=== PATIENT | female | born 1955 ===

== ENCOUNTER 2020-04-09 14:31 | Emergency (ER) | payer OTHER ==
[~2020-04-09] VITALS: Ht 157.5 cm; Wt 68.9 kg
[2020-04-09 15:11] VITALS: BP 116/86
--- NOTE | 2020-04-09 15:28 | NUR ---
W/C ASSISTED TO BED 9.
--- NOTE | 2020-04-09 15:35 | NUR ---
PT BIBA FROM HOME C/O LOWER ABDOMINAL PAIN & LEFT HIP RADIATING TO THE LEFT THIGH X 4 DAYS. DENIES DYSURIA OR TRAUMA. DENIES N/V/D; SKIN IS PINK/WARM/DRY; AAOX4 WITH EVEN AND STEADY GAIT; LUNGS CLEAR BL; HR EVEN AND REGULAR; PT DENIES ANY FEVER, CP, SOB, OR COUGH AT THIS TIME; PATIENT STATES PAIN OF 8/10 AT THIS TIME; VSS; PATIENT POSITIONED FOR COMFORT; HOB ELEVATED; BEDRAILS UP X1; BED DOWN. ER MD MADE AWARE OF PT STATUS. MED HX: DM, LEFT 2ND TOE AMPUTATION.
[2020-04-09 16:10] LABS: BASOPHILS # (AUTO) 0.1 K/uL (0.00-0.22); BASOPHILS % (AUTO) 0.5 % (0.0-2.0); EOSINOPHILS % (AUTO) 0.1 % (0.0-4.0); HEMATOCRIT 34.6 % (36-48); HEMOGLOBIN 11.3 g/dL (12.0-16.0); LYMPHOCYTES # (AUTO) 1.4 K/uL (2.5-16.5); LYMPHOCYTES % (AUTO) 7.5 % (20.5-51.1); MEAN CORPUSCULAR HEMOGLOBIN 28 pg (27-31); MEAN CORPUSCULAR HGB CONC 33 g/dL (33-37); MEAN CORPUSCULAR VOLUME 85.3 fL (80-94); MONOCYTES # (AUTO) 1.1 K/uL (0.8-1.0); MONOCYTES % (AUTO) 6.1 % (1.7-9.3); NEUTROPHILS # (AUTO) 15.7 K/uL (1.8-7.7); NEUTROPHILS % (AUTO) 85.8 % (42.2-75.2); PLATELET COUNT (AUTO) 423 K/uL (140-450); RED BLOOD CELL COUNT(AUTO) 4.06 MIL/uL (4.20-5.40); RED CELL DISTRIBUTION WIDTH 14.1 % (11.6-13.7); WHITE BLOOD COUNT (AUTO) 18.2 K/uL (4.8-10.8)
--- NOTE | 2020-04-09 16:16 | NUR ---
US IS AT BEDSIDE.
[2020-04-09 16:25] LABS: ALBUMIN 2.8 g/dL (3.4-5.0); ANION GAP 16.7 (8-16); CARBON DIOXIDE 21.7 mmol/L (21-32); CREATININE 1.5 mg/dL (0.6-1.3); POTASSIUM 5.4 mmol/L (3.5-5.1); TOTAL BILIRUBIN 0.4 mg/dL (0.0-1.0)
--- NOTE | 2020-04-09 17:02 | NUR ---
Patient transferred to bed 5 for further care.
--- NOTE | 2020-04-09 17:34 | NUR ---
Unable to obtain UA at this time.
--- NOTE | 2020-04-09 18:07 | NUR ---
Spoke with Kory Senior, .
--- NOTE | 2020-04-09 18:36 | NUR ---
Pt taken to CT via [facility].
--- NOTE | 2020-04-09 18:48 | NUR ---
Pt back from CT via ritesh chacko locked, bed in lowest position.
--- NOTE | 2020-04-09 18:51 | NUR ---
Patient transferred to bed 4 for further care.
--- NOTE | 2020-04-09 19:30 | NUR ---
RECIVED REPORT FROM ALLAN HERNANDEZ, CONTINUATION OF CARE.
--- NOTE | 2020-04-09 20:02 | NUR ---
PT ASSISTED TO RESTROOM VIA W/C. PT UNABLE TO PROVIDE URINE SAMPLE. ERMD MADE AWARE AND GAVE VERBAL ORDER FOR STRAIGHT CATH.
--- NOTE | 2020-04-09 20:14 | NUR ---
PT PROVIDED UA VIA STRIGHT CATH, PER ERMD ORDERS. PT MADE AWARE AND GAVE CONSENT. UA COLLECTED USING STERILE TECHNIQUE.
--- NOTE | 2020-04-09 20:15 | NUR ---
NOTIFIED ER MD DURHAM OF K+ LEVEL OF 5.4. GAVE NO NEW ORDERS STATED, "ITS FINE".
[2020-04-09 20:25] VITALS: BP 118/84
--- NOTE | 2020-04-09 20:25 | NUR ---
Patient discharged with v/s stable. Written and verbal after care instructions given and explained. Patient alert, oriented and verbalized understanding of instructions. Wheel Chair Assisted with steady gait. All questions addressed prior to discharge. ID band removed. Patient advised to follow up with PMD. Rx of NORCO AND ZOFRAN given. Patient educated on indication of medication including possible reaction and side effects. Opportunity to ask questions provided and answered.
[2020-04-09 20:33] LABS: APPEARANCE,URINE CLOUDY (CLEAR); BILIRUBIN,URINE NEGATIVE (NEGATIVE); BLOOD, URINE 1+ (NEGATIVE); COLOR,URINE YELLOW (YELLOW); LEUKOCYTE ESTERASE ,URINE NEGATIVE (NEGATIVE); NITRITE, URINE NEGATIVE (NEGATIVE); PH,URINE 5.5 (5.0-9.0); UGLUCOSE TRACE (NEGATIVE)
[2020-04-09 20:46] LABS: COARSE GRANULAR CASTS,URINE 0-10 /LPF (None Seen); RBC,URINE 11-20 (MOD) /HPF (0-5); WBC,URINE 0-5 /HPF (0-5)
== END 2020-04-09 20:25 | disposition home or self-care (01) ==
LOC: EDBD 14:31 → MED 14:31
DX: R19.00 Intra-abdominal and pelvic swelling, mass and lump, unspecified site (principal); M25.552 Pain in left hip; R11.0 Nausea; E11.9 Type 2 diabetes mellitus without complications
CPT/HCPCS: 36415; 76856; 80053; 81001; 83690; 85025; 87086; 99284